=== PATIENT | male | born 1975 | race Caucasian/White ===

== ENCOUNTER 2020-04-10 15:39 | Outpatient (CLI) | payer BC, SELFPAY ==
[2020-04-10 17:46] LABS: Sperm Present Sperm Not Present
== END 2020-04-10 15:40 | disposition home or self-care (01) ==
LOC: LAB 15:44
PROVIDERS: PCP Nurse Practitioner Family; Visit Provider Nurse Practitioner Family
DX: Z98.52 Vasectomy status (principal)
CPT/HCPCS: 89310

== ENCOUNTER 2021-04-16 07:02 | Outpatient (CLI) | payer BC, SELFPAY ==
--- NOTE | 2021-04-16 07:25 | USCV_ITS ---
Josiah Johnston Age: 45 Gender: M : 1975 Exam Date: 04/16/2021 07:11 Ordering Phys: Nola Whaley PLASTERER APPRENTICE PLASTERER APPRENTICE Technologist: Mary Beth Carney Exam Location: [facility] [place] Indication: RIGHT LEG PAIN RIGHT LEFT Brachial 138.00 mmHg Brachial 134.00 mmHg Pressure (mmHg) Waveform Pressure (mmHg) Waveform 169.00 ENTRY TABLE OPERATOR 165.00 167.00 DPA 152.00 1.22 Ankle/Brachial Index 1.20 166.00 Pre-Exercise Toe Pressure 149.00 1.20 Pre-Exercise Toe/Brachial Index 1.08 FINDINGS Normal resting ABIs bilaterally Normal resting TBIs bilaterally CONCLUSIONS No evidence of any significant arterial obstruction, based on the above findings. Dr Rita Henley MD [facility] (Electronically Signed) Final Date: 17 April 2021 10:11 S
== END 2021-04-16 07:03 | disposition home or self-care (01) ==
LOC: RAD 07:06
PROVIDERS: PCP Nurse Practitioner Family; Visit Provider Nurse Practitioner Family
DX: M79.604 Pain in right leg (principal)
CPT/HCPCS: 93922

== ENCOUNTER 2022-02-18 10:35 | Emergency (ER) | payer BC, SELFPAY ==
[2022-02-18 11:25] VITALS: BP 156/94; PULSE 88; RESP 18; TEMP 36.4; O2SAT 97; BMI 36.9
--- NOTE | 2022-02-18 12:00 | ED_ITS ---
HPI - General Adult General: Chief complaint: Headache Stated complaint: Right side numbness Time Seen by Provider: 02/18/22 11:29 History of Present Illness: Patient is a 46-year-old male with a history of headaches presenting to the emergency room with right-sided facial numbness and right head/neck pain. Patient tells me the headache started about 3 days ago and has been gradually worsening. Later today, patient noticed that the right side of face has been numb and he has had blurry vision in the right eye. Patient denies any diplopia, amaurosis fugax, slurring of speech, facial droop weakness in the arms or legs today. Numbness sensation over the right face has been persistent throughout the day. Patient denies any fever or chills, neck pain with range of motion, family history of aneurysm. Patient tells me that this is not worst headache of life and sudden in onset and it did not reach maximal intensity over first 1-2 hours. Patient denies any cough, runny nose, sore throat, chest pain, shortness breath, palpitation, abdominal pain, nausea/vomiting, complaints or other abdominal complaints. Onset:3 days ago Duration:3 days Location: home Severity:moderate Associated symptoms: Reports headache(s); Deny chest pain, dyspnea, nausea, rash, palpitations or vomiting Review of Systems Const: Denies: fever(s) or chills Eyes: Reports: blurry vision (+R eye blurriness of vision) ENMT: Denies: mouth pain Card: Denies: chest pain or palpitations Resp: Denies: dyspnea or non-productive cough GI: Denies: abdominal pain, nausea, vomiting or diarrhea : Denies: dysuria Musc: Denies: extremity pain Skin/Breast: Denies: rash or new lesions Neuro: Reports: headache(s) and other (+R sided facial numbness); Denies: weakness in extremities Psych: Reports: other (Normal mood) José Miguel/Lymph: Denies: easy bruising PFS ED PFSH: Medical History (Updated 02/18/22 @ 12:08 by Bo Camara MD) Headache Social History (Updated 02/18/22 @ 12:04 by Bo Camara MD) Smoking and tobacco status: never smoked Alcohol intake: never Substance/Drug Use: never Physical Exam Const: COMMON NORMALS: alert HENMT: COMMON NORMALS: atraumatic HEAD & SCALP: atraumatic MOUTH: moist mucous membranes not abnormal Eye: COMMON NORMALS: EOMs intact bilaterally and conjunctivae normal CONJUNCTIVA: Yes conjunctivae normal OTHER: Visual acuity 20/30 R eye and 20/25 L eye Neck/C-Spine: COMMON NORMALS: full ROM and supple Resp: COMMON NORMALS: normal respiratory effort and clear to auscultation bilaterally AUSCULTATION: clear to auscultation bilaterally Cardio: COMMON NORMALS: regular rate RATE: regular rate GI: COMMON NORMALS: Soft to palpation and non-tender PALPATION: Yes Soft to palpation Extremity: COMMON NORMALS: full ROM Neuro: SENSORIUM/ORIENTATION: Yes alert MOTOR EXAM: No Abnormal motor strength present and Other motor observations present (no focal motor deficits) OTHER: Mental status? Awake, alert, and oriented to self, year, month, location, and situation.? Following simple axial and appendicular commands.? Has appropriate fund of knowledge, comprehension, and insight.? Able to recall and understands pertinent aspects of medical history and current treatment status.? ? Language? Speech is fluent without word-finding difficulties.? Intact naming, expression, office assistant receptionist, and repetition.? ? Cranial nerves? 2,3,4,6: PERRL, EOMI with no nystagmus. 5: Intact sensation to light touch, symmetric? 7: Smile symmetrical, no facial droop.? 8: Hearing grossly intact.? 9,10: Normal palate movement.? 11: Normal strength in trapezius bilaterally 12: Tongue protrudes midline.? ? Motor examination? Normal bulk & tone. Strength as follows (R/L): Delts (5/5), Biceps (5/5), Triceps (5/5), Wrist ext (5/5), hip flexors (5/5), plantarflexors (5/5), dorsiflexors (5/5). Sensation? Light Touch: Grossly intact and equal in upper and lower extremities bilaterally? Romberg: Negative.? Distal joint position sense intact ? Coordination? Ifldas-qj-cvqb-finger movements intact without dysmetria or past-pointing.? Rapid fingertaps: preserved amplitude without decriment.? No tremor, myoclonus or truncal ataxia.? ? Gait/stance? Steady, normal narrow base gait with appropriate arm swing and turning.? Tandem gait without hesitation or loss of balance. Psych: COMMON NORMALS: speech normal SPEECH: Yes normal speech MOOD & AFFECT: Yes euthymic mood Course Vital Signs: Vital signs: Vital Signs Temperature 97.9 F 02/18/22 13:44 Pulse Rate 78 02/18/22 13:44 Respiratory Rate 13 02/18/22 13:44 Blood Pressure 130/77 02/18/22 13:44 Pulse Oximetry 98 02/18/22 13:44 MDM - General Adult Medical Decision Making 46-year-old male with history headache presented to the emergency room with 3 days of right-sided headache and neck pain with 1 day of facial numbness and right eye blurriness of vision. Neuro exam is intact. Patient is afebrile hemodynamically stable. Visual acuity exam largely wnl. Lab work-up is unremarkable. Patient received NS, Reglan, Toradol, Tylenol, magnesium sulfate and Benadryl with significant improvement in headache. I doubt that this is subarachnoid bleed given the fact the patient has not had worse headache of his life, headaches associate with other symptoms, has no family history of aneurysm. However, patient does have a grandparent with cerebral aneurysm. I have for shared decision making for getting a CT scan however given improvement in symptoms, clinical presentation, I explained that the risk is low. Patient elects to not undergo CT evaluation today. I have explained to patient that he needs quite to the emergency room if the headache is worse if there is any LOC, focal weakness, or any new concerning complaints. Given intact cranial nerve exam today in the setting of facial numbness, I do not suspect the patient is having acute stroke. At the present, I do not think the patient is having an intracranial brain bleed, meningitis, strokes, vascular dissection or any other emergent cranial pathology as patient does not hae consistent hx for these things. I have given patient follow up with our transplant case manager to be seen by our outpatient Neurology for evaluation of headache. Patient aware of a call from our transplant case manager to schedule for appointment(s) and verbalizes understanding of the importance of following up. Rx: Magnesium oxide, Tylenol, Reglan as needed for headache Disposition: Discharge. Patient counseled regarding diagnostic impression, treatment plan. Patient given ED strict return precautions to return for continuation, worsening, or development of new symptoms. Instructed to f/u w/ PCP regarding symptoms today. Patient verbalized understanding. Lab Data : 02/18/22 12:00 02/18/22 12:00 Laboratory Results WBC 5.8 10^3/uL (4.0-10.0) 02/18/22 12:00 RBC 5.15 10^6/uL (4.1-5.3) 02/18/22 12:00 Hgb 16.6 g/dL (11.7-16.6) 02/18/22 12:00 Hct 46.5 % (42.0-52.0) 02/18/22 12:00 MCV 90.3 fl (80-94) 02/18/22 12:00 MCH 32.2 pg (28.0-34.0) 02/18/22 12:00 MCHC 35.7 g/dL (30.0-36.0) 02/18/22 12:00 RDW 11.9 % (12.1-15.1) L 02/18/22 12:00 Plt Count 229 10^3/cmm (130-400) 02/18/22 12:00 MPV 10.8 fL (7.4-10.4) H 02/18/22 12:00 Neut % (Auto) 57.9 % 02/18/22 12:00 Lymph % (Auto) 34.2 % 02/18/22 12:00 [place] % (Auto) 6.0 % 02/18/22 12:00 Eos % (Auto) 0.9 % 02/18/22 12:00 Baso % (Auto) 0.7 % 02/18/22 12:00 Neut # (Auto) 3.35 10^3/uL (1.8-7.7) 02/18/22 12:00 Lymph # (Auto) 2.0 10^3/uL (0.8-4.8) 02/18/22 12:00 [place] # (Auto) 0.4 10^3/uL (0.2-0.9) 02/18/22 12:00 Eos # (Auto) 0.1 10^3/uL (0.0-0.8) 02/18/22 12:00 Baso # (Auto) 0.0 10^3/uL (0.0-0.1) 02/18/22 12:00 Nucleated RBC % (auto) 0 % 02/18/22 12:00 Nucleated RBCs # 0.0 /100WBC 02/18/22 12:00 Sodium 131 mmol/L (136-145) L 02/18/22 12:00 Potassium 4.3 mmol/L (3.5-5.1) 02/18/22 12:00 Chloride 94 mmol/L (98-107) L 02/18/22 12:00 Carbon Dioxide 20 mmol/L (22-29) L 02/18/22 12:00 Anion Gap 21.3 (5-19) H 02/18/22 12:00 BUN 8 mg/dL (6-20) 02/18/22 12:00 Creatinine 0.6 mg/dL (0.7-1.2) L 02/18/22 12:00 GFR Calculation 145.7 mL/min (90-130) H 02/18/22 12:00 Glucose 309 mg/dL (65-115) H 02/18/22 12:00 Calculated Osmolality 282 mOsm/kg (285-295) L 02/18/22 12:00 Calcium 9.7 mg/dL (8.5-10.5) 02/18/22 12:00 Magnesium 2.0 mg/dL (1.7-2.3) 02/18/22 12:00 Discharge Plan Discharge Patient Disposition: Home Clinical Impression: Headache, Facial numbness Condition: Stable Prescriptions: New acetaminophen 500 mg tablet 500 mg PO Q6H PRN (Reason: pain) 5 Days Qty: 20 0RF magnesium oxide 400 mg magnesium capsule 400 mg PO DAILY PRN (Reason: headache) 10 Days Qty: 10 0RF Discharge Orders: Discharge ED (Routine); Ordered 02/18/22 Ordered By: Bo Camara Referrals: Whaley,Nola, VISUAL MERCHANDISING MANAGER [Primary Care Provider] - Discharge Diet: Advance as tolerated Discharge Activity: Increase activity as tolerated Patient Instructions: Acute Headache (ED) Activity Restrictions/Additional Instructions: Please come back to the emergency room you have any fever chills, worsening headache, focal weakness, nausea/vomiting, inability to perform daily activity, or any new concerning complaints. Our transplant case manager will have you follow-up with Dr. Marquis in the next few days. You would be expected to have a phone call with our transplant case manager who will put you on the schedule. You can expect a call from us in the next 2-3 days. If you don't hear from us, call us back in the emergency room at [phone]. Coding Level of Care Code ED Unemployment Benefits Claims Taker for Ann Jane Exam Comprehensive
[2022-02-18] MEDS: ketorolac 30 mg/mL INJ IVP (12:04)
[2022-02-18] MEDS: acetaminophen 500 mg Tablet PO (12:04)
[2022-02-18] MEDS: diphenhydrAMINE 50 mg/mL SDV 1mL IVP (12:04)
[2022-02-18] MEDS: metoclopramide 5 mg/mL SDV 2 mL 10 MG IVP (12:05)
[2022-02-18] MEDS: sodium chloride 0.9% 1,000 ML 999 ML IV (12:05)
[2022-02-18 12:17] LABS: Basophils % 0.7 %; Eosinophils # 0.1 10^3/uL (0.0-0.8); Eosinophils % 0.9 %; Hematocrit 46.5 % (42.0-52.0); Hemoglobin 16.6 g/dL (11.7-16.6); Lymphocytes % 34.2 %; Mean Corpuscular HGB Conc 35.7 g/dL (30.0-36.0); Mean Corpuscular Hemoglobin 32.2 pg (28.0-34.0); Mean Corpuscular Volume 90.3 fl (80-94); Mean Platelet Volume 10.8 fL (7.4-10.4); Monocytes # 0.4 10^3/uL (0.2-0.9); Neutrophils # 3.35 10^3/uL (1.8-7.7); Neutrophils % 57.9 %; Nucleated Red Blood Cells % 0 %; Platelet Count 229 10^3/cmm (130-400); Red Blood Count 5.15 10^6/uL (4.1-5.3); Red Cell Distribution Width 11.9 % (12.1-15.1); White Blood Count 5.8 10^3/uL (4.0-10.0)
[2022-02-18 12:45] VITALS: BP 132/86; PULSE 90; RESP 13; O2SAT 98
[2022-02-18 12:59] LABS: Blood Urea Nitrogen 8 mg/dL (6-20); Calcium 9.7 mg/dL (8.5-10.5); Carbon Dioxide 20 mmol/L (22-29); Chloride 94 mmol/L (98-107); Glomerular Filtration Rate 145.7 mL/min (90-130); Glucose 309 mg/dL (65-115); Osmolality Calculated 282 mOsm/kg (285-295); Sodium 131 mmol/L (136-145)
[2022-02-18 13:08] LABS: Anion Gap 21.3 (5-19); Potassium 4.3 mmol/L (3.5-5.1)
[2022-02-18 13:44] VITALS: BP 130/77; PULSE 78; RESP 13; TEMP 36.6; O2SAT 98
--- NOTE | 2022-02-18 15:17 | DCPLANNER ---
Addendum entered by Yeimi Keating 06/23/22 13:37: Patient had a follow up appointment scheduled with neurology - appointment was cancelled. Addendum entered by Yeimi Keating 02/24/22 08:10: Patient has a follow up appointment scheduled for Wednesday, June 15, 2022 at 2:[address] Marquis. Clinic will call patient with appointment information. Original Note: benefits manager had message to schedule a follow up appointment for patient with neurology. benefits manager sent patients information to the front staff at the neurology clinic. Patients information will be printed and reviewed. Clinic will call patient with appointment information.
== END 2022-02-18 13:30 | disposition home or self-care (01) ==
PROVIDERS: Emergency Provider Emergency Medicine; PCP Nurse Practitioner Family
DX: R51.9 Headache, unspecified (principal); R20.0 Anesthesia of skin
CPT/HCPCS: 80048; 83735; 85025; 96361; 96374; 96375; 99284; J1200; J1885; J2765; J7030

== ENCOUNTER 2023-03-08 11:38 | Outpatient (CLI) | payer BC, SELFPAY ==
[2023-03-08 11:54] VITALS: BMI 35.9
--- NOTE | 2023-03-08 11:56 | ECG_ITS ---
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 Interpretive Statements NAME OF STUDY: TREADMILL STRESS TEST INDICATION: Chest Pain, PROCEDURE: At the baseline, the patient's blood pressure was 104/81 with a heart rate of 92. The baseline electrocardiogram showed normal sinus rhythm with normal ST-Ts.. The patient exercised for 9 minutes and 36 seconds on a standard Luiz protocol. Patient attained a maximum heart rate of 180 beats per minute(103% of the maximum predicted heart rate) with a blood pressure at the peak exercise of 214/79 mm Hg. The EKG at the peak exercise revealed. Patient did not have any chest pain or any significant cardiac arrhythmias with the exercise During the recovery phase, there were no new changes. Blood pressure at the end of the recovery phase was 129/83 mm Hg with a heart rate of 111 per minute. CONCLUSION: 1. Normal EKG response to treadmill exercise 2. No exercise-induced chest pain or cardiac arrhythmia 3. Hypertensive response to exercise 4. Fair exercise tolerance, attained a maximum of 13.5 METs Electronically Signed On 03-09-2023 20:39:37 CDT by Rita Henley M.D. [email or web address]
[2023-03-08 12:23] VITALS: BP 129/83; PULSE 107
== END 2023-03-08 11:39 | disposition home or self-care (01) ==
LOC: CDL 11:40
PROVIDERS: PCP Nurse Practitioner Family; Visit Provider Nurse Practitioner Family
DX: R07.9 Chest pain, unspecified (principal)
CPT/HCPCS: 36415; 93017